=== PATIENT | female | born 1985 | race Caucasian/White ===

== ENCOUNTER 2020-03-15 15:46 | Outpatient (REF) | payer OTHER, SELFPAY ==
[2020-03-15 16:43] LABS: MANUAL DIFF FLAG NO
[2020-03-15 16:50] LABS: Basophils Percent Auto 0.4 % (0-2); Eosinophils Absolute Auto 0.2 X10*3/uL (0.0-0.4); Eosinophils Percent Auto 2.5 % (0-4); Hemoglobin 13.6 g/dl (12.0-16.0); Imm Gran Abs Auto 0.02 X10*3/uL (0.00-0.03); Imm Gran Pct Auto 0.2 % (0.0-0.4); Lymphocytes Absolute Auto 1.9 X10*3/uL (1.2-4.9); Lymphocytes Percent Auto 23.4 % (20-40); Mean Corpuscular HGB Conc 31.6 g/dl (31.0-35.0); Mean Corpuscular Hemoglobin 28.1 pg (27.0-33.0); Mean Corpuscular Volume 88.8 fL (80-98); Mean Platelet Volume 10.4 fL (9.4-12.3); Monocytes Absolute Auto 0.7 X10*3/uL (0.1-1.2); Monocytes Percent Auto 8.1 % (2-11); Neutrophils Absolute Auto 5.4 X10*3/uL (2.0-8.3); Neutrophils Percent Auto 65.4 % (45-73); Platelet Count 261 X10*3/uL (160-400); Red Blood Count 4.84 X10*6/uL (4.20-5.50); Red Cell Distribution Width 13.9 % (11.0-16.0); White Blood Count 8.2 X10*3/uL (4.8-10.8)
[2020-03-15 17:09] LABS: Alanine Aminotransferase 12 U/L (0-31); Alkaline Phosphatase 76 U/L (39-117); Anion Gap 14 (12-20); Aspartate Amino Transferase 16 U/L (5-31); Bilirubin Total 0.7 mg/dL (0.0-1.0); Blood Urea Nitrogen 12 mg/dL (9-16); Calcium 9.1 mg/dL (8.4-10.2); Carbon Dioxide 29 mmol/L (22-29); Chloride 102 mmol/L (96-108); Cholesterol 167 mg/dL; Estimated Glomerular Filt Rate > 60; Glucose Random 79 mg/dL (60-115); HDL Cholesterol 45 mg/dL; LDL Cholesterol Calculated 112 mg/dl; Potassium 4.2 mmol/l (3.3-5.1); Sodium 141 mmol/L (135-145); Total Protein 7.4 g/dL (6.5-8.0); Triglycerides 53 mg/dL
[2020-03-15 17:29] LABS: Thyroid Stimulating Hormone 1.78 mIU/mL (0.32-4.0)
[2020-03-16 07:55] LABS: Estimated Average Glucose 94 mg/dL; Hemoglobin A1c % 4.9 %
== END 2020-03-15 15:47 | disposition home or self-care (01) ==
LOC: HO.LAB 15:46
PROVIDERS: PCP Physician Assistant; Visit Provider Physician Assistant
DX: Z13.1 Encounter for screening for diabetes mellitus (principal); Z13.220 Encounter for screening for lipoid disorders; Z13.29 Encounter for screening for other suspected endocrine disorder
CPT/HCPCS: 36415; 80053; 80061; 83036; 84443; 85025

== ENCOUNTER 2023-07-19 16:01 | Outpatient (AMB) | payer BC, SELFPAY ==
[2023-07-19 16:09] VITALS: BP 102/76; PULSE 90; O2SAT 98
--- NOTE | 2023-07-19 16:09 | A.OFFPC_ITS ---
Vital Signs 07/19/23 16:09 Height 5 ft BMI Reason not done Patient refused/unable BP 102/76 Blood Pressure Location Lt brachial Position Sitting Pulse 90 Pulse Source Pulse Oximeter Pulse Oximetry (%) 98 Oxygen Delivery Method Room Air Intake Visit Reasons: Annual exam Intake Note: Patient is here today for a physical. 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 Accompanied by: Self / Same As Patient Allergies tree nut [TREE NUT] Allergy (Intermediate, Verified 07/19/23 16:15) SWELLING, THROAT ITCHING codeine [CODEINE] Allergy (Mild, Verified 07/19/23 16:15) UPSET STOMACH, chest pain Iodinated Contrast Media [IV Dye, Iodine Containing Contrast ] Allergy (Mild, Verified 07/19/23 16:15) RASH FROM MRI CONTRAST acetaminophen [From PERCOCET] Allergy (Unknown, Verified 07/19/23 16:15) RASH fluticasone [Advair Diskus] Allergy (Unknown, Verified 07/19/23 16:15) tachycardia oxycodone [Percocet] Allergy (Unknown, Verified 07/19/23 16:15) rash salmeterol [Advair Diskus] Allergy (Unknown, Verified 07/19/23 16:15) tachycardia hydrocodone [From VICODIN] Adverse Reaction (Unknown, Verified 07/19/23 16:15) AGITATION/IRRITABLE lactose Allergy (Unknown, Uncoded 07/19/23 16:14) Unknown Medication List - Last Reconciled 07/19/23 by Leoncio Collins PA-C albuterol sulfate 90 mcg/actuation (ProAir HFA) 2 puffs inhalation Q4-6H PRN cetirizine (Zyrtec) 4 tabs daily PO daily; dupilumab mg subcut dupilumab (Dupixent) mg subcut epinephrine IM DIRECTED fluticasone propionate 110 mcg/actuation 1 puff inhalation BID [scooter As directed] sumatriptan succinate take 1 tab at onset of headache; if no relief may repeat 1 tab after at least 2 hrs; max = 4 tabs/24 hr PO Tobacco use date assessed: 07/19/23 Dental Screening Dental Screen Date: 07/19/23 Did you have a dental visit in the last 12 months?: Yes Did you have a dental problem in the last 6 months where you did not have access to dental care?: No Was dental information given to patient?: Patient has dentist HPI Annual exam HPI Details Keira is a 38 y/o F here today for a PE. ?Pateint has a pmhx significant for Migraines, asthma, obesity, allergic rhinitis. Concerns--> continues to struggle with attention and focus on her job tasks and a personal life. Was on Strattera a few years ago though felt it was ineffective. She is willing to try Wellbutrin ? .. ? Migraines: Reports her migraines have been fairly well controlled with current medication as needed.. Has seen a neurologist in the past though no recommendations and medications have been started. She denies taking any a [id number] medications for migraines. .. Obesity: Patient does understand her BMI is well over 30. She will work on better eating habits and trying to be more physically active to reduce her weight. ? .. ? Asthma: Well controlled, only seldomly using MATHIEU inhaler.? Currently on allergy injections weekly, ?Allergies as of late causing some SOB/ wheeze. .. [facility]: Is followed by [facility] in [facility] for PAP screenings.? She needs up-to-date Pap .. Vaccine: UTD with FLu, UTD with COVID Vac, needs up-to-date tetanus vaccine, Need FLu vaccine [facility] Surgical History History of removal of cyst History of ankle surgery Family History Father No problems noted. Mother Neurologic disorder Social History (Updated 07/19/23 @ 16:19 by Leoncio Collins PA-C) Housing: House Alcohol intake: current Alcohol intake frequency: holidays/special occasions only Patient Tobacco Use Status: Never used Tobacco Tobacco use type: Cigarette e-Cigarette/Vaping Use: Never Used Second Hand Smoke Exposure: No service: No Current occupational status: employed Current occupation: [employer] Cognitive needs: No Hearing needs: No Vision needs: No Questionnaire PHQ-9 Over the last 2 weeks, how often have you been bothered by any of the following problems? 1. Little interest or pleasure in doing things: not at all 2. Feeling down, depressed, or hopeless: not at all 3. Trouble falling or staying asleep, or sleeping too much: not at all 4. Feeling tired or having little energy: not at all 5. Poor appetite or overeating: not at all 6. Feeling bad about yourself - or that you are a failure or have let yourself or your family down: not at all 7. Trouble concentrating on things, such as reading the newspaper or watching television: not at all 8. Moving or speaking so slowly that other people could have noticed. Or the opposite - being so fidgety or restless that you have been moving around a lot more than usual: not at all 9. Thoughts that you would be better off or of hurting yourself in some way: not at all Total score: 0 Depression Screening Interpretation: Negative Depression Screening Done: Yes 31542 - PHQ-9 Billing: Yes Source: Developed by Drs. Tod Reeves, Ariana Salguero, Connor Torrez and colleagues, with an educational robin from [employer]. Thrive Questionnaire Date Thrive assessed: 07/19/23 I am a: Patient What is your living situation today?: I have a steady place to live Within the past 12 months, did the food you bought not last and you didn't have the money to get more?: Never true Within the past 12 months, did you worry whether your food would run out before you got money to buy more?: Never true Do you have trouble paying for medicines?: No Do you have trouble getting transportation to medical appointments?: No Do you have trouble paying your heating and electricity bill?: No Do you have trouble taking care of your child, family member or friend?: No Do you have trouble with day-to-day activities such as bathing, preparing meals, shopping, managing finances, etc.?: No Are you currently unemployed and looking for a job?: No Are you interested in more education?: No Please select the resources that you would like help with: None THRIVE Score: 0 AUDIT C Alcohol Use Questionnaire (AUDIT-C) 1. How often do you have a drink containing alcohol?: Monthly or less 2. How many drinks containing alcohol do you have on a typical day when you are drinking?: 1 or 2 3. How often do you have six or more drinks on one occasion?: Never Total Score: 1 EBONY-7 AMB Questionnaire EBONY-7 Date EBONY - 7 assessed: 07/19/23 Feeling nervous, anxious, or on edge: 0 = Not at all Not being able to stop or control worryin = Not at all Worrying too much about different things: 0 = Not at all Trouble relaxin = Not at all Being so restless that it is hard to sit still: 0 = Not at all Becoming easily annoyed or irritable: 0 = Not at all Feeling afraid as if something awful might happen: 0 = Not at all Total EBONY-7 score (0-4 normal; 5-9 mild; 10-14 moderate; 15-21 severe): 0 Source: Developed by Drs. Tod Reeves, Ariana Salguero, Connor Torrez and colleagues, with an educational robin from [employer]. EBONY-7 Assessment Billing EBONY-7 Assessment Tool: EBONY-7 Assessment 88805 Review of Systems Const Denies body aches, Denies chills, Denies excessive sweating, Denies fatigue, Denies fever(s) and Denies headache(s) Eyes Denies blurry vision ENT Denies dysphagia, Denies vertigo, Denies dizziness, Denies headache(s), Denies hearing loss and Denies tinnitus Card Denies chest pain, Denies chest pain with activity, Denies syncope, Denies irre gular heart rhythm and Denies dyspnea Resp Denies chest congestion, Denies cough, Denies hemoptysis, Denies dyspnea and Denies wheezing GI Denies abdominal pain, Denies melena, Denies hematochezia, Denies coffee ground emesis, Denies dysphagia, Denies diarrhea, Denies nausea and Denies vomiting Denies urinary frequency, Denies dysuria, Denies urinary hesitancy and Denies urinary urgency Musc Denies arthralgias, Denies limited range of motion, Denies muscle cramps and Denies muscle weakness Skin/Breast Denies rash and Denies skin ulcer Neuro Denies Abnormal speech present, Denies confusion, Denies vertigo, Denies dizziness, Denies syncope, Denies headache(s), Denies memory loss and Denies seizure-like activity Psych Denies anxiety, Denies confusion, Denies depression, Denies memory loss, Denies panic attacks and Denies paranoia Endo Denies excessive sweating, Denies fatigue, Denies flushing, Denies polydipsia and Denies polyuria Aller/Immun Denies wheezing Physical exam (Primary Care) Vital Signs: Last Vital Signs Pulse 90 07/19/23 16:09 BP 102/76 07/19/23 16:09 Pulse Ox 98 07/19/23 16:09 Oxygen Delivery Method Room Air 07/19/23 16:09 Tobacco/Smoking Status: Tobacco use Status Tobacco use date assessed 07/19/23 07/19/23 16:14 Patient Tobacco Use Status Never used Tobacco 07/19/23 16:19 Tobacco use type Cigarette 07/19/23 16:19 e-Cigarette/Vaping Use Never Used 07/19/23 16:19 PHQ-9: PHQ-9 Score PHQ-9: Total score 0 07/19/23 16:20 Depression Screening Interpretation: Negative Thrive Assessment: Date of Thrive Assessment Date Thrive assessed 07/19/23 07/19/23 16:14 Const General: cooperative, comfortable, no acute distress, alert and awake; No confusion Orientation/consciousness: oriented to person, oriented to place, patient oriented x3 and No confusion HENMT Head: Yes normocephalic Ears: external ears normal and TM's normal bilaterally Face and sinus: No sinus tenderness Mouth: Normal oral and palatal mucosa present and tongue normal Teeth and gingiva: dentition normal and gingiva normal Throat: Yes posterior oropharynx normal, Yes tonsils normal and Yes uvula midline Eyes Conjunctivae: conjunctivae normal Sclerae: sclerae normal Pupils: Equal, round and reactive pupils present EOM: EOMs intact bilaterally Direct Ophthalmoscopy: No no photophobia Neck Neck: Yes no lymphadenopathy, No tender and Yes no JVD Thyroid: Thyroid normal Carotids: no bruits Chest Chest palpation & inspection: no tenderness Resp Effort & Inspection: normal respiratory effort, no audible wheezes, not labored and no stridor Auscultation: no crackles, no rales, no rhonchi and no wheezes Cardio Jugular venous distension: no JVD Rate: regular rate, not bradycardic and not tachycardic Rhythm: regular rhythm Bruits: no carotid bruits Peripheral pulses: Peripheral pulses 2+ throughout GI Inspection: Yes normal to inspection, No abdominal wall ecchymosis and No visible herniation Palpation (GI): Soft to palpation, nontender, no guarding, not rigid and No hepatosplenomegaly present Auscultation: normoactive bowel sounds General: Yes no CVA tenderness Back/Spine/Pelvis Back: no CVA tenderness and No back tenderness Cervical Spine: cervical ROM normal Thoracic/Lumbar Spine: thoracic and lumbar spine normal to inspection, straight leg raise negative bilaterally, No thoraco-lumbar ROM limited and No lumbar spinal tenderness Skin Lesions: no lesions Rashes: no rashes Wounds: no wounds Neuro General: oriented to person, oriented to place, patient oriented x3, CN's II-XI intact bilaterally and No confusion Cranial nerves: Yes Equal, round and reactive pupils present and Yes Normal accommodation reflex present Cognition (Neuro): normal cognition Speech: No Abnormal speech present Gait exam (Neuro): Normal gait present Motor exam (neuro): 5/5 motor strength present throughout Extrem Right upper extremity: full ROM; no cyanosis Left upper extremity: full ROM; no cyanosis Right lower extremity: no edema Left lower extremity: no edema Psych Appearance: grossly normal Mental Status: mental status grossly normal Affect: normal affect Attitude: cooperative Thought process: Normal thought process present Assessment and Plan Assessment & Plan (1) Annual physical exam: Code(s): Z00.00 - Encounter for general adult medical examination without abnormal f indings (2) Allergies: Code(s): T78.40XA - Allergy, unspecified, initial encounter Qualifiers: Encounter type: subsequent encounter Qualified Code(s): T78.40XD - Allergy, unspecified, subsequent encounter Plan: 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 She reports she needs new referral to new establishment for allergy injections (3) ADD (attention deficit disorder): Code(s): F98.8 - Other specified behavioral and emotional disorders with onset usually occurring in childhood and adolescence Qualifiers: Hyperactivity presence: unspecified Qualified Code(s): F98.8 - Other specified behavioral and emotional disorders with onset usually occurring in childhood and adolescence Plan: Patient continues to struggle with attention focus in her personal life and on tasks at work. Has tried Strattera though was not effective. She is willing to try another non stimulant ADHD medication. Will start Wellbutrin (4) Asthma: Code(s): J45.909 - Unspecified asthma, uncomplicated Qualifiers: Asthma complication type: uncomplicated Asthma persistence: intermittent Asthma severity: mild Qualified Code(s): J45.20 - Mild intermittent asthma, uncomplicated Plan: Patient reports her asthma has been fairly well controlled with p.r.n. use of he r albuterol inhaler. Also on Dupixent and allergy injections which have been very helpful for the control of her asthma. (5) Migraines: Code(s): G43.909 - Migraine, unspecified, not intractable, without status migrainosus Qualifiers: Migraine type: unspecified Status migrainosus presence: without status migrainosus Intractability: not intractable Qualified Code(s): G43.909 - M igraine, unspecified, not intractable, without status migrainosus Plan: Patient reports her migraines are fairly well controlled with p.r.n. use of her sumatriptan. She does follow a neurologist Orders: Orders Comprehensive [place]. Panel Fast 07/19/23 Z13.1 - Encounter for screening for diabetes mellitus Complete Blood Count no Diff 07/19/23 J45.20 - Mild intermittent asthma, uncomplicated Referrals Allergy & Immunology Referral J45.909 - Unspecified asthma, uncomplicated, T78.40XA - Allergy, unspecified, initial encounter Medications: New bupropion HCl (Wellbutrin SR) 100 mg PO QAM 30 days 30 tabs 1RF F98.8 - Other specified behavioral and emotional disorders with onset usually occurring in childhood and adolescence Coding Level of Care Code Est Pt Prev Care [id number]([id number]) Diagnoses Annual physical exam Z00.00 Allergy, subsequent encounter T78.40XD Encounter type: subsequent encounter Attention deficit disorder, unspecified hyperactivity presence F98.8 Hyperactivity presence: unspecified Mild intermittent asthma without complication J45.20 Asthma complication type: uncomplicated Asthma persistence: intermittent Asthma severity: mild Migraine without status migrainosus, not intractable, unspecified migraine type G43.909 Migraine type: unspecified Status migrainosus presence: without status migrainosus Intractability: not intractable Additional Codes EBONY-7 Assessment Billing - EBONY-7 Assessment Tool: EBONY-7 Assessment 71003 ([id number])
== END 2023-07-19 16:32 | disposition home or self-care (01) ==
PROVIDERS: Visit Provider Physician Assistant
DX: Z00.00 Encounter for general adult medical examination without abnormal findings (principal); F98.8 Other specified behavioral and emotional disorders with onset usually occurring in childhood and adolescence; J45.20 Mild intermittent asthma, uncomplicated; G43.909 Migraine, unspecified, not intractable, without status migrainosus
CPT/HCPCS: 99395

== ENCOUNTER 2024-07-31 15:53 | Outpatient (AMB) | payer OTHER, SELFPAY ==
--- NOTE | 2024-07-31 15:58 | MHC.PC.OV ---
Vital Signs 07/31/24 15:59 Height 5 ft Weight 242 lb 3 oz BMI 47.3 BP 126/80 Blood Pressure Location Lt brachial Position Sitting Pulse 97 Pulse Source Pulse Oximeter Pulse Oximetry (%) 98 Oxygen Delivery Method Room Air Intake Visit Reasons: Annual Exam Intake Note: Patient here for a physical exam Kitchen Runner Required: No Accompanied by: Self / Same As Patient Allergies tree nut [TREE NUT] Allergy (Intermediate, Verified 07/31/24 16:34) SWELLING, THROAT ITCHING codeine [CODEINE] Allergy (Mild, Verified 07/31/24 16:34) UPSET STOMACH, chest pain Iodinated Contrast Media [IV Dye, Iodine Containing Contrast ] Allergy (Mild, Verified 07/31/24 16:34) RASH FROM MRI CONTRAST acetaminophen [From PERCOCET] Allergy (Unknown, Verified 07/31/24 16:34) RASH fluticasone [Advair Diskus] Allergy (Unknown, Verified 07/31/24 16:34) tachycardia oxycodone [Percocet] Allergy (Unknown, Verified 07/31/24 16:34) rash salmeterol [Advair Diskus] Allergy (Unknown, Verified 07/31/24 16:34) tachycardia hydrocodone [From VICODIN] Adverse Reaction (Unknown, Verified 07/31/24 16:34) AGITATION/IRRITABLE lactose Allergy (Unknown, Uncoded 07/31/24 16:34) Unknown Medication List - Last Reconciled 07/31/24 by Leoncio Collins PA-C albuterol sulfate 90 mcg/actuation (ProAir HFA) 2 puffs inhalation Q4-6H PRN bupropion HCl SR (Wellbutrin SR) 100 mg PO QAM 30 days cetirizine (Zyrtec) 4 tabs daily PO daily; dupilumab mg subcut dupilumab (Dupixent) mg subcut epinephrine IM DIRECTED fluticasone propionate 110 mcg/actuation 1 puff inhalation BID [scooter As directed] scopolamine base 1 patch transdermal Q3D PRN sumatriptan succinate take 1 tab at onset of headache; if no relief may repeat 1 tab after at least 2 hrs; max = 4 tabs/24 hr PO Tobacco use date assessed: 07/31/24 Dental Screening Dental Screen Date: 07/31/24 Did you have a dental visit in the last 12 months?: Yes Did you have a dental problem in the last 6 months where you did not have access to dental care?: No Was dental information given to patient?: Patient has dentist HPI Annual Exam HPI Details Keira is a 39 y/o F here today for a PE. ?Pateint has a pmhx significant for Migraines, asthma, obesity, allergic rhinitis. ? .. ? Migraines: Reports her migraines have been fairly well controlled with current medication as needed.. Has seen a neurologist in the past though no recommendations and medications have been started. She denies taking any a rdzo-xjy-scvenlr medications for migraines which often work well. She does need a refill on sumatriptan which she uses for more severe migraines. Her migraines are triggered by bright sunlight and bright lights thus she requires tenting to her vehicle windows. .. Obesity: Has lost weight since last office visit. She reports she has been a bit more physically active.. Patient does understand her BMI is well over 30. She will work on better eating habits and trying to be more physically active to reduce her weight. ? .. ? Asthma: Well controlled, only seldomly using MATHIEU inhaler.? Currently on allergy injections weekly, ?Allergies as of late causing some SOB/ wheeze. .. [facility]: Is followed by [facility] in [facility] for PAP screenings.? .. Vaccine: UTD with FLu, UTD with COVID Vac, needs up-to-date tetanus vaccine, PFSH Surgical History History of removal of cyst History of ankle surgery Family History Father No problems noted. Mother Neurologic disorder Social History (Updated 07/31/24 @ 16:37 by Leoncio Collins PA-C) Housing: House Alcohol intake: current Alcohol intake frequency: holidays/special occasions only Patient Tobacco Use Status: Never used Tobacco e-Cigarette/Vaping Use: Never Used Second Hand Smoke Exposure: No service: No Current occupational status: employed Current occupation: [employer] Current occupational exposures/hazards: No Cognitive needs: No Hearing needs: No Vision needs: No Questionnaire PHQ-9 Over the last 2 weeks, how often have you been bothered by any of the following problems? 1. Little interest or pleasure in doing things: not at all 2. Feeling down, depressed, or hopeless: not at all 3. Trouble falling or staying asleep, or sleeping too much: not at all 4. Feeling tired or having little energy: not at all 5. Poor appetite or overeating: not at all 6. Feeling bad about yourself - or that you are a failure or have let yourself or your family down: not at all 7. Trouble concentrating on things, such as reading the newspaper or watching television: not at all 8. Moving or speaking so slowly that other people could have noticed. Or the opposite - being so fidgety or restless that you have been moving around a lot more than usual: not at all 9. Thoughts that you would be better off or of hurting yourself in some way: not at all Total score: 0 Depression Screening Interpretation: Negative Depression Screening Done: Yes 42964 - PHQ-9 Billing: Yes Source: Developed by Drs. Tod Reeves, Ariana Salguero, Connor Torrez and colleagues, with an educational robin from [employer]. Thrive Questionnaire Date Thrive assessed: 07/31/24 I am a: Patient What is your living situation today?: I have a steady place to live Within the past 12 months, did the food you bought not last and you didn't have the money to get more?: Never true Within the past 12 months, did you worry whether your food would run out before you got money to buy more?: Never true Do you have trouble paying for medicines?: No Do you have trouble getting transportation to medical appointments?: No Do you have trouble paying your heating and electricity bill?: No Do you have trouble taking care of your child, family member or friend?: No Do you have trouble with day-to-day activities such as bathing, preparing meals, shopping, managing finances, etc.?: No Are you currently unemployed and looking for a job?: No Are you interested in more education?: Yes Please select the resources that you would like help with: None Currently or been in a relationship where the following occur: I choose not to answer THRIVE Score: 0 AUDIT C Alcohol Use Questionnaire (AUDIT-C) 1. How often do you have a drink containing alcohol?: Never Total Score: 0 EBONY-7 AMB Questionnaire EBONY-7 Date EBONY - 7 assessed: 07/31/24 Feeling nervous, anxious, or on edge: 0 = Not at all Not being able to stop or control worryin = Not at all Worrying too much about different things: 0 = Not at all Trouble relaxin = Not at all Being so restless that it is hard to sit still: 0 = Not at all Becoming easily annoyed or irritable: 0 = Not at all Feeling afraid as if something awful might happen: 0 = Not at all Total EBONY-7 score (0-4 normal; 5-9 mild; 10-14 moderate; 15-21 severe): 0 Source: Developed by Drs. Tod Reeves, Ariana Salguero, Connor Torrez and colleagues, with an educational robin from [employer]. EBONY-7 Assessment Billing EBONY-7 Assessment Tool: EBONY-7 Assessment 98459 ACT Questionnaire In the past 4 weeks, how much of the time did your asthma keep you from getting as much done at work, school or at home?: None of the time During the past 4 weeks, how often have you had shortness of breath?: Not at all During the past 4 weeks, how often did your asthma symptoms wake you up at night or earlier than usual in the morning?: Not at all During the past 4 weeks, how often have you had to use your rescue inhaler or nebulizer medication?: Not at all How would you rate your asthma control during the past 4 weeks?: Completely controlled ACT Interpretation: Negative Score: 25 Review of Systems Const Denies body aches, Denies chills, Denies excessive sweating, Denies fatigue, Denies fever(s) and Denies headache(s) Eyes Denies blurry vision ENT Denies dysphagia, Denies vertigo, Denies dizziness, Denies headache(s), Denies hearing loss and Denies tinnitus Card Denies chest pain, Denies chest pain with activity, Denies syncope, Denies irregular heart rhythm and Denies dyspnea Resp Denies chest congestion, Denies cough, Denies hemoptysis, Denies dyspnea and Denies wheezing GI Denies abdominal pain, Denies melena, Denies hematochezia, Denies coffee ground emesis, Denies dysphagia, Denies diarrhea, Denies nausea and Denies vomiting Denies urinary frequency, Denies dysuria, Denies urinary hesitancy and Denies urinary urgency Musc Denies arthralgias, Denies limited range of motion, Denies muscle cramps and Denies muscle weakness Skin/Breast Denies rash and Denies skin ulcer Neuro Denies Abnormal speech present, Denies confusion, Denies vertigo, Denies dizziness, Denies syncope, Denies headache(s), Denies memory loss and Denies seizure-like activity Psych Denies anxiety, Denies confusion, Denies depression, Denies memory loss, Denies panic attacks and Denies paranoia Endo Denies excessive sweating, Denies fatigue, Denies flushing, Denies polydipsia and Denies polyuria Aller/Immun Denies wheezing Physical exam (Primary Care) Vital Signs: Last Vital Signs Pulse 97 07/31/24 15:59 BP 126/80 07/31/24 15:59 Pulse Ox 98 07/31/24 15:59 Oxygen Delivery Method Room Air 07/31/24 15:59 BMI result Body Mass Index 47.3 BMI Assessment/Plan discussion: High BMI High, discussed plan: lifestyle, weight reduction, dietary and physical activity Tobacco/Smoking Status: Tobacco use Status Tobacco use date assessed 07/31/24 07/31/24 16:05 Patient Tobacco Use Status Never used Tobacco 07/31/24 16:37 Tobacco use type 07/31/24 16:05 e-Cigarette/Vaping Use Never Used 07/31/24 16:37 PHQ-9: PHQ-9 Score PHQ-9: Total score 0 07/31/24 16:40 Depression Screening Interpretation: Negative Thrive Assessment: Date of Thrive Assessment Date Thrive assessed 07/31/24 07/31/24 15:59 Currently or been in a relationship where the following occur: I choose not to answer Const General: cooperative, comfortable, no acute distress, alert and awake; No confusion Orientation/consciousness: oriented to person, oriented to place, patient oriented x3 and No confusion HENMT Head: Yes normocephalic Ears: external ears normal and TM's normal bilaterally Face and sinus: No sinus tenderness Mouth: Normal oral and palatal mucosa present and tongue normal Teeth and gingiva: dentition normal and gingiva normal Throat: Yes posterior oropharynx normal, Yes tonsils normal and Yes uvula midline Eyes Conjunctivae: conjunctivae normal Sclerae: sclerae normal Pupils: Equal, round and reactive pupils present EOM: EOMs intact bilaterally Direct Ophthalmoscopy: No no photophobia Neck Neck: Yes no lymphadenopathy, No tender and Yes no JVD Thyroid: Thyroid normal Carotids: no bruits Chest Chest palpation & inspection: no tenderness Resp Effort & Inspection: normal respiratory effort, no audible wheezes, not labored and no stridor Auscultation: no crackles, no rales, no rhonchi and no wheezes Cardio Jugular venous distension: no JVD Rate: regular rate, not bradycardic and not tachycardic Rhythm: regular rhythm Bruits: no carotid bruits Peripheral pulses: Peripheral pulses 2+ throughout GI Inspection: Yes normal to inspection, No abdominal wall ecchymosis and No visible herniation Palpation (GI): Soft to palpation, nontender, no guarding, not rigid and No hepatosplenomegaly present Auscultation: normoactive bowel sounds General: Yes no CVA tenderness Back/Spine/Pelvis Back: no CVA tenderness and No back tenderness Cervical Spine: cervical ROM normal Thoracic/Lumbar Spine: thoracic and lumbar spine normal to inspection, straight leg raise negative bilaterally, No thoraco-lumbar ROM limited and No lumbar spinal tenderness Skin Lesions: no lesions Rashes: no rashes Wounds: no wounds Neuro General: oriented to person, oriented to place, patient oriented x3, CN's II-XI intact bilaterally and No confusion Cranial nerves: Yes Equal, round and reactive pupils present and Yes Normal accommodation reflex present Cognition (Neuro): normal cognition Speech: No Abnormal speech present Gait exam (Neuro): Normal gait present Motor exam (neuro): 5/5 motor strength present throughout Extrem Right upper extremity: full ROM; no cyanosis Left upper extremity: full ROM; no cyanosis Right lower extremity: no edema Left lower extremity: no edema Psych Appearance: grossly normal Mental Status: mental status grossly normal Affect: normal affect Attitude: cooperative Thought process: Normal thought process present Coding Level of Care Code Est Pt Prev Care 18-39y(91151) Diagnoses Annual physical exam Z00.00 Mild intermittent asthma without complication J45.20 Asthma complication type: uncomplicated Asthma persistence: intermittent Asthma severity: mild Migraine without status migrainosus, not intractable, unspecified migraine type G43.909 Migraine type: unspecified Status migrainosus presence: without status migrainosus Intractability: not intractable Class 3 obesity E66.813 Additional Codes PHQ-9 - 80435 - PHQ-9 Billing: Yes ([id number]) EBONY-7 Assessment Billing - EBONY-7 Assessment Tool: EBONY-7 Assessment 78641 ([id number]) Asthma Control Questionnaire - ACT Interpretation: Negative ([id number]) Assessment & Plan Assessment & Plan (1) Annual physical exam: Code(s): Z00.00 - Encounter for general adult medical examination without abnormal findings Category: Medical Plan: As per HPI (2) Asthma: Code(s): J45.909 - Unspecified asthma, uncomplicated Category: Medical Qualifiers: Asthma complication type: uncomplicated Asthma persistence: intermittent Asthma severity: mild Qualified Code(s): J45.20 - Mild intermittent asthma, uncomplicated Plan: Patient reports her asthma has been well controlled since being on allergy injections. She rarely has to use her albuterol inhaler. She denies any nighttime awakenings with asthma symptoms or recent asthma exacerbations. (3) Migraines: Code(s): G43.909 - Migraine, unspecified, not intractable, without status migrainosus Category: Medical Qualifiers: Migraine type: unspecified Status migrainosus presence: without status migrainosus Intractability: not intractable Qualified Code(s): G43.909 - Migraine, unspecified, not intractable, without status migrainosus Plan: As per HPI patient this suffer with a migraine disorder for quite some time. She does use wwvu-arp-[id number] medications from time to time with good relief of her migraines. She does use Imitrex for more severe migraine attacks. She reports her trigger to migraines a stress and bright lights/ sunshine thus requires stenting to her vehicle windows. (4) Class 3 obesity: Code(s): E66.813 - Obesity, class 3 Category: Medical Plan: Patient does understand her BMI is over 40 will work on being more physically active and adapt to better eating habits to reduce her weight Orders: Orders Comprehensive [facility]. Panel Fast 07/31/24 Z13.1 - Encounter for screening for diabetes mellitus Complete Blood Count no Diff 07/31/24 Z13.1 - Encounter for screening for diabetes mellitus Medications: Refilled sumatriptan succinate take 1 tab at onset of headache; if no relief may repeat 1 tab after at least 2 hrs; max = 4 tabs/24 hr PO 7 tabs 0RF G43.909 - Migraine, unspecified, not intractable, without status migrainosus
[2024-07-31 15:59] VITALS: BP 126/80; PULSE 97; O2SAT 98; BMI 47.3
--- OUTSIDE RECORDS SUMMARY | 2024-07-31 17:50 | XMS_ITS | Clinical Summary ---
Author Organization [facility] Address [address] [place] [address] Phone Care Team Providers Care Cow Buyer Name Role Phone Unavailable Primary Care Provider Unavailabl e Immunizations Immunization Administration Dates Next Due DTP 01/05/1992, 9,1987,07/12,1987 HPV, Quadrivalent 04/28/2007,11/04/2006 Hep B, ped/adol 07/26/1998,02/15/1998,01/15/1998 Hib (HbOC) 09/01/1988 Influenza, injectable, trivalent 007,04/08/2006,03/24/2005,03/05 MMR 07/14/1994,06/22/1988 Meningococcal Conj (Menactra) MCV4P 10/05/2005 OPV 09/01/1988, 8,1987,05/06 Td (adult) (Tenivac), 5 Lf t etanus toxoid, PF, adsorbed 02/04/1999 Varicella 01/15/1998 Family History Relation Name Status Comments Father Father: HTN/thy roid Maternal Grandmother Materna l grandmother: arthritis Mother Alive Mother: Alive a nd well Social History Tobacco Use Types Packs/Day Years Used Date Smoking Tobacco: Never Assessed Comments Unknown Sex and Gender Information Value Date Recorded Sex Assigned at Not on file Legal Sex Female 5:12 PM EDT Gender Identity Not on file Sexual Orientation Not on file Plan of Treatment Health Maintenance Due Date Last Done Comments Varicella Vaccines (2 of 2 - 2-dose childhood series) 04/09/1998 01/15/1998 DTaP,Tdap,and Td Vaccines (6 - Tdap) 02/05/1999 02/04/1999, 01/05/1992, 09/01/1988, Additional history exists Consider Men B Vaccine (1 of 2 - Bexsero 2-dose series) 2003 HPV Vaccines (3 - 3-dose series) 07/21/2007 04/28/2007, 11/04/2006 Influenza Vaccines (#1) 2023 04/28/20, 04/08/2006, 03/24/2005, Additional history exists COVID-19 Vaccine () 01/23/2024 HIB Vaccines Completed 09/01/1988 IPV Vaccines Completed 09/01/1988, 08/23, 1987, Additional history exists MMR Vaccines Completed 07/14/1994, 06/22/1988 Hepatitis B Vaccines Completed 07/26/1998, 02/15/1998, 01/15/1998 Meningococcal Vaccine Completed 10/05/2005 Hepatitis A Vaccines Aged Out No long er eligible based on patient's age to complete this topic Men B Vaccine Aged Out No longer elig ible based on patient's age to complete this topic Pneumococcal Vaccine Aged Out No long er eligible based on patient's age to complete this topic
--- OUTSIDE RECORDS SUMMARY | 2024-07-31 17:50 | XMS_ITS | Encounter Summary ---
Author Organization [facility] Address [address] [place] [id number] Phone Care Team Providers Care Adventure Therapist Name Role Phone Unavailable Primary Care Provider Unavailabl e Encounter Details Date Type Department Care Team (Late st Contact Info) Description 01/07/2017 Conversion Encounter [facility] - [address] [address] Social History Tobacco Use Types Packs/Day Years Used Date Smoking Tobacco: Never Assessed Comments Unknown Sex and Gender Information Value Date Recorded Sex Assigned at Not on file Legal Sex Female 5:12 PM EDT Gender Identity Not on file Sexual Orientation Not on file documented as of this encounter Plan of Treatment Not on file documented as of this encounter Visit Diagnoses Not on filedocumented in this encounter
== END 2024-07-31 16:48 | disposition home or self-care (01) ==
PROVIDERS: PCP Physician Assistant; Visit Provider Physician Assistant
DX: Z00.00 Encounter for general adult medical examination without abnormal findings (principal); J45.20 Mild intermittent asthma, uncomplicated; E66.813 Obesity, class 3; Z68.42 Body mass index [BMI] 45.0-49.9, adult; G43.909 Migraine, unspecified, not intractable, without status migrainosus

== ENCOUNTER → 2024-07-31 15:53 | Outpatient (BNVA) | payer OTHER, SELFPAY | PROVIDERS: PCP Physician Assistant; Visit Provider Physician Assistant | DX: Z00.00 Encounter for general adult medical examination without abnormal findings (principal); J45.20 Mild intermittent asthma, uncomplicated; G43.909 Migraine, unspecified, not intractable, without status migrainosus; E66.813 Obesity, class 3; Z68.42 Body mass index [BMI] 45.0-49.9, adult | CPT/HCPCS: 96127; 96160 ==